=== PATIENT | female | born 1990 | race Two or more races ===

== ENCOUNTER 2025-03-31 21:49 | Emergency (ER) | payer MEDICAID, SELFPAY ==
[2025-03-31 21:49] VITALS: BMI 36.2
[2025-03-31 22:54] VITALS: BP 152/106; PULSE 70; RESP 16; TEMP 36.7; O2SAT 99
--- NOTE | 2025-03-31 22:57 | PD.EDDENTL ---
ED Dental RME/HPI General Chief complaint: Dental/Oral/Throat Stated complaint: RIGHT TOOTH PAIN Time Seen by Provider: 03/31/25 22:51 Arrival date/time: 03/31/25 21:49 35-year-old female reports with complaints of tooth ache for several days. Patient states that she has a dentist appointment on Saturday but she has been taking [id number] medications with no improvement of the pain. Patient states the pain is causing pain in the ears and is keeping her awake at night. She denies fever chills dizziness blurred vision ringing in ears Limitations: no limitations Related Data Home Medications ?Medication ?Instructions ?Recorded ?Confirmed vit no.95-ferrous 95 tab PO DAILY 05/29/23 05/30/23 fumarate 28 mg-folic acid 800 mcg tablet () Previous Rx's ?Medication ?Instructions ?Recorded Hydrocodone/Acetaminophen * (NORCO 1 tab PO Q4H PRN severe pain #10 12/31/16 5/325 *) tabs ibuprofen 800 mg tablet 800 mg PO TID PRN pain #30 tabs 03/31/25 tramadol 50 mg tablet 50 mg PO BID PRN pain #15 tabs 03/31/25 Allergies Allergy/AdvReac Type Severity Reaction Status Date / Time No Known Allergies Allergy Verified 03/31/25 21:49 Review of Systems Constitutional Constitutional: Denies chills, Denies fever(s) and Denies headache(s) ENT Ears, Nose, Mouth, and Throat: Reports dental pain, Reports otalgia, Denies headache(s) and Denies vertigo Neurologic Neurologic: Denies headache(s) and Denies vertigo Past Medical History Past Medical History NEUROLOGIC: Negative Neurological Disorders CARDIAC: Negative Cardiac Disorders or Congestive Heart Failure RESPIRATORY: Positive Asthma; Negative Chronic Obstructive Pulmonary Disease (COPD) GASTROINTESTINAL: Negative Gastrointestinal Disorders GENITOURINARY: Negative Genitourinary Disorders or Renal Disease REPRODUCTIVE: Negative Pelvic Inflammatory Disease MUSCULOSKELETAL: Negative Musculoskeletal Disorders ENDOCRINE: Negative Endocrine Disorders, Diabetes Mellitus Type 1 or Diabetes Mellitus Type 2 HEMATOLOGIC: Negative Blood Disorders or Anemia OTHER HISTORY: Negative Autoimmune Disease, Blood Transfusions, Blood Transfusion Reaction, Anesthesia Reactions, Organ Transplant, MRSA, Vancomycin-Resistant Enterococci, Clostridium Difficile or Cancer Family History FAMILY HISTORY: Negative Family Cardiac Disorders Surgical History SURGICAL: Negative Cardiac Surgery, Endocrine Surgery, Ear Surgery, Nephrectomy, Joint Replacement, Neurologic Surgery, Mastectomy, Section or Organ Transplant Social History SMOKING STATUS: Never smoker ED Exam General Limitations: Present no limitations General appearance: Present alert and in no apparent distress Head Head exam: Present atraumatic Eye Eye exam: Present normal appearance, PERRL and EOMI ENT ENT exam: Present normal exam and mucous membranes moist; Absent normal oropharynx (Multiple broken teeth multiple dental caries) Neck Neck exam: Present normal inspection, full ROM and trachea midline Neurological Exam Neurological exam: Present alert, oriented X3 and CN II-XII intact Psychiatric Psychiatric exam: Present normal affect and normal mood Skin Skin exam: Present warm, dry, intact and normal color Course Quality Measures none Orders Category Date Time Status oxyCODONE/APAP 5/325 [Percocet 5/325] Med 03/31/25 22:57 Once 1 tab PO X1 ONE Vital Signs Vital signs: Vital Signs Temperature 98.1 F 03/31/25 22:54 Pulse Rate 70 03/31/25 22:54 Respiratory Rate 16 03/31/25 22:54 Blood Pressure 152/106 H 03/31/25 22:54 Pulse Oximetry (%) 99 03/31/25 22:54 Oxygen Delivery Method Room Air 03/31/25 22:54 Dental / Oral Patient data External records reviewed:: None Clinical information provided by:: patient Social determinants that could affect healthcare access:: none Patient has the following chronic illnesses:: none How is presenting disease/condition affected by chronic disease/condition?: no chronic disease Evaluation data The following diagnostics were reviewed and interpreted by me:: other (specify) (none) Lab and/or radiology exams considered but not ordered:: none Interpretation Summary: none Medications / Prescriptions Medications or Prescriptions considered but not ordered:: none Medication administrations:: Percocet Consultations Consultation(s) initiated? (list below): No Diagnosis Most likely diagnosis given after review of the tests above:: dental caries Admission Indicated Admission indicated?: not indicated Admission Request Was there a request for admission?: No Disposition Plan Disposition Plan: Discharge Discharge Attestation Discharge Attestation: The patient and all family members were given an opportunity to ask questions and understood the discharge instructions. Discharge instructions specifically effects, indications for sooner follow up or return to the emergency department, and the expected course of current diagnosis. Patient condition: Stable Discharge Plan Plan Patient Disposition: HOME (Self Care) Prescriptions/Referrals Prescriptions/Med Rec: New tramadol 50 mg tablet 50 mg PO BID PRN (Reason: pain) Qty: 15 0RF ibuprofen 800 mg tablet 800 mg PO TID PRN (Reason: pain) Qty: 30 0RF No Action Hydrocodone/Acetaminophen * (NORCO 5/325 *) 1 TAB tablet 1 tab PO Q4H PRN (Reason: severe pain) Qty: 10 0RF PNV no.95-ferrous fumarate-FA [] 28 mg iron- 800 mcg tablet 95 tab PO DAILY Patient Comments: TAKE 1 TABLET BY MOUTH EVERY DAY FOR 90 DAYS Problem List Clinical Impression: Dental caries, Pain, dental Patient/Caregiver Discharge Instructions Discharge Activity: activity as tolerated Education Materials: ED Dental Pain Additional Instructions: Follow-up with dentist as planned. May also use medication such as clove oil which can be purchased [id number]. Drop medication onto your teeth to help with pain Print Language: [place] Stand Alone Forms: Martha Award Info., Patient Portal Info Letter
== END 2025-04-01 00:03 | disposition home or self-care (01) ==
LOC: SERX 04-01 00:09
PROVIDERS: Emergency Provider Emergency Medicine
DX: K02.9 Dental caries, unspecified (principal)
CPT/HCPCS: 99284; A9270